=== PATIENT | male | born 1970 | race Caucasian/White ===

== ENCOUNTER → 2024-03-09 | Outpatient (CLI) | payer OTHER, SELFPAY ==
[2024-03-09 12:49] LABS: Pathologist Comment May follow
[2024-03-09 12:59] LABS: Synovial Fld Mononuclear WBC # 1.802 10^3/ul; Synovial Fld Mononuclear WBC % 27.9 %; Synovial Fld Polynuclear WBC # 4.651 10^3/uL; Synovial Fld Polynuclear WBC % 72.1 %
[2024-03-09 13:00] LABS: RBC /Synovial Fluid 0.005 10^6/uL (0)
[2024-03-09 13:07] LABS: AUTO B FLUID DILUENT BKGD CT WBC <0.1 RBC <0.01 (W<.1,R<.01); Source / Synovial Fluid LEFT KNEE; Source- Body Fluid SYNOVIAL
[2024-03-09 13:08] LABS: Appearance /Synovial Fluid Cloudy (CLEAR); Color / Synovial Fluid Yellow (Pale Yellow)
[2024-03-09 13:36] LABS: CRYSTALS, BODY FLUID MONOSODIUM URATE
[2024-03-09 14:33] LABS: Lymph 7 %; Monocyte /Synovial Fluid 18 %; Neutrophil 75 % (0-25)
[2024-03-09 14:34] LABS: Body Fluid QC Type(s) BF1Q,BF2Q
[2024-03-11 11:53] LABS: Pathologist Review Reviewed
== END | disposition home or self-care (01) ==
PROVIDERS: PCP Family Medicine; Referring Provider Orthopaedic Surgery; Visit Provider Orthopaedic Surgery
DX: M25.462 Effusion, left knee (principal); Z71.3 Dietary counseling and surveillance
CPT/HCPCS: 87070; 87075; 87205; 89050; 89051; 89060